=== PATIENT | female | born 1990 | race Caucasian/White ===

== ENCOUNTER 2016-08-16 00:14 | Emergency (ER) | payer OTHER ==
[2016-08-16 00:22] VITALS: BP 131/86
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
--- NOTE | 2016-08-16 07:47 | RAD ---
INDICATION: Head injury. COMPARISON: There are no prior studies available for comparison. TECHNIQUE: Contiguous axial sections of the brain were obtained from the skull base to the vertex without contrast. FINDINGS: The ventricles, cisterns and sulci are within normal limits. No significant focal abnormality or mass effect is seen. There is no evidence for hemorrhage. No significant focal osseous abnormality is seen. The visualized portion of the paranasal sinuses and mastoid air cells appear clear. IMPRESSION: NO EVIDENCE FOR ACUTE INTRACRANIAL ABNORMALITY.
== END 2016-08-16 02:24 | disposition home or self-care (01) ==
LOC: ED 00:14
DX: S09.90XA Unspecified injury of head, initial encounter (principal); V40.5XXA Car driver injured in collision with pedestrian or animal in traffic accident, initial encounter; Y92.9 Unspecified place or not applicable; F17.210 Nicotine dependence, cigarettes, uncomplicated
CPT/HCPCS: 70450; 99281

== ENCOUNTER 2016-09-09 13:56 | Emergency (ER) | payer BC ==
[2016-09-09] MEDS ORDERED: Ondansetron ODT TAB* 4 MG SL PRN (14:29)
[2016-09-09] MEDS ORDERED: Acetaminophen TAB* 325 MG PO ONE (14:30)
[2016-09-09 15:08] VITALS: BP 129/81
--- NOTE | 2016-09-09 17:55 | ED ---
Syncope/Near Syncope - HPI Summary HPI Summary: Patient is an otherwise healthy 25yo female who presents with near syncopal episode while having sex in the shower this morning. Partner states she felt warm and stated she was becoming light headed then slowly crouched down. He states she stared into space for a short period of time, then came to, laughing and wondering why she was on the floor. He states she lost consciousness for about 20 seconds. Denies previous episodes of this. Denies injuries, hitting head or confusion. Denies memory loss. Otherwise healthy and takes no medications. - History Of Current Complaint Chief Complaint: EDSyncope Time Seen by Provider: 09/09/16 14:20 Hx Obtained From: Patient, Family/Beam Press Operator Onset/Duration: Sudden Onset Timing: Intermittent Episode Lasting - 20 seconds Context: Witnessed Activity At Onset: Exertion Associated Head Trauma: No Aggravating Factor(s): Exertion Alleviating Factor(s): Spontaneous Resolution Associated Signs And Symptoms: Diaphoresis, Lightheadedness Frequency: Episodes x___ - 1, Episodes Lasting ____ (in Mins/Days/Weeks/Years) - 20 seconds - Risk Factors Cardiac Risk Factors: Negative Dysrhythmia Risk Factors: Negative Risk Factor(s): Negative - Allergies/Home Medications Allergies/Adverse Reactions: Allergies Allergy/AdvReac Type Severity Reaction Status Date / Time Bee Venom Allergy Hives Verified 09/09/16 14:49 Shrimp Flavor Allergy Hives Verified 09/09/16 14:49 BEES Allergy Severe Hives Uncoded 05/14/16 13:13 shrimp Allergy Hives Uncoded 05/14/16 13:13 PMH/Surg Hx/FS Hx/Imm Hx Previously Healthy: Yes Endocrine/Hematology History: Denies: Hx Diabetes, Hx Thyroid Disease Cardiovascular History: Denies: Hx Hypertension, Hx Peripheral Vascular Disease Respiratory History: Reports: Hx Sleep Apnea Denies: Hx Asthma, Hx Chronic Obstructive Pulmonary Disease (COPD) GI History: Denies: Hx Ulcer Musculoskeletal History: Denies: Hx Arthritis, Hx Osteoporosis Sensory History: Reports: Hx Contacts or Glasses Denies: Hx Cataracts, Hx Glaucoma Opthamlomology History: Reports: Hx Contacts or Glasses Denies: Hx Cataracts, Hx Glaucoma Neurological History: Reports: Hx Migraine Denies: Hx Headaches, Hx Seizures, Hx Transient Ischemic Attacks (TIA) Psychiatric History: Denies: Hx Anxiety, Hx Depression - Surgical History Surgery Procedure, Year, and Place: URETER SURGERY Infectious Disease History: No Infectious Disease History: Denies: Hx Clostridium Difficile, Hx Hepatitis, Hx Human Immunodeficiency Virus (HIV), Hx of Known/Suspected MRSA, Hx Shingles, Hx Tuberculosis, Hx Known/ Suspected VRE, Hx Known/Suspected VRSA, History Other Infectious Disease, Traveled Outside the [place] in Last 30 Days - Family History Known Family History: Positive: None, Cardiac Disease - Grandfather and both grandmothers, Hypertension, Diabetes - Social History Occupation: Employed Full-time Lives: With Family Alcohol Use: Occasionally Alcohol Amount: once a month Hx Substance Use: No Substance Use Type: Reports: None Hx Tobacco Use: Yes Smoking Status (MU): Light Every Day Tobacco Smoker Amount Used/How Often: 3 PER DAY Review of Systems Positive: Skin Diaphoresis Eyes: Negative Cardiovascular: Negative Respiratory: Negative Positive: no symptoms reported, see HPI Musculoskeletal: Negative Skin: Negative Neurological: Negative Psychological: Normal All Other Systems Reviewed And Are Negative: Yes Physical Exam Triage Information Reviewed: Yes Vital Signs On Initial Exam: Initial Vitals Temp Pulse Resp BP Pulse Ox 99.3 F 71 18 134/81 100 09/09/16 13:58 09/09/16 13:58 09/09/16 13:58 09/09/16 13:58 09/09/16 13:58 Vital Signs Reviewed: Yes Appearance: Positive: Well-Appearing, No Pain Distress, Well-Nourished Skin: Positive: Warm, Skin Color Reflects Adequate Perfusion Head/Face: Positive: Normal Head/Face Inspection Eyes: Positive: EOMI, SHI, Conjunctiva Clear Neck: Positive: Supple Respiratory/Lung Sounds: Positive: Clear to Auscultation, Breath Sounds Present Cardiovascular: Positive: Normal, RRR Musculoskeletal: Positive: Normal, Strength/ROM Intact Neurological: Positive: Normal, Sensory/Motor Intact, Alert, Oriented to Person Place, Time, Speech Normal Psychiatric: Positive: Normal AVPU Assessment: Alert Diagnostics - Vital Signs Vital Signs Temp Pulse Resp BP Pulse Ox 09/09/16 15:07 98.2 F 71 18 129/81 09/09/16 13:58 99.3 F 71 18 134/81 100 - Laboratory Lab Statement: Any lab studies that have been ordered have been reviewed, and results considered in the medical decision making process. Course/Dx Course Of Treatment: Patient feeling well on arrival. near syncopal episode in hot shower under exertion. educated patient on reactions with vasodilation while in the shower. No LOC, did not hit head. nauseous immediately after incident, but currently feeling well. will dc home with return precautions. - Diagnoses Differential Diagnosis/HQI/PQRI: Positive: Hypovolemia, Metabolic Reaction, Vasovagal Episode Provider Diagnoses: Vasovagal near-syncope Discharge - Discharge Plan Condition: Stable Disposition: HOME Patient Education Materials: Syncope (ED) Referrals: Renu Patel MD [Primary Care Provider] - Additional Instructions: Drink plenty of fluids today. If you feel you are not getting enough fluids, drink gatorade or tomato juice. Rest. Tylenol as needed for headache. A prescription was sent for zofran to your pharmacy. Use this medication only if you become nauseous.
== END 2016-09-09 15:07 | disposition home or self-care (01) ==
LOC: ED 13:56
DX: R55 Syncope and collapse (principal); F17.200 Nicotine dependence, unspecified, uncomplicated
CPT/HCPCS: 93005; 99282; A9270-GY

== ENCOUNTER 2017-06-12 08:33 | Emergency (ER) | payer BC ==
[2017-06-12 09:20] LABS: Hematocrit 40 % (35-47); Hemoglobin 13.8 g/dl (12.0-16.0); Mean Corpuscular HGB Conc 35 g/dl (31-36); Mean Corpuscular Hemoglobin 31 pg (27-31); Mean Corpuscular Volume 90 fL (80-97); Mean Platelet Volume 7 um3 (7.4-10.4); Red Blood Count 4.46 10^6/ul (4.0-5.4); Red Cell Distribution Width 12 % (10.5-15); White Blood Count 6.7 10^3/ul (3.5-10.8)
[2017-06-12] MEDS ORDERED: Acetaminophen TAB* 325 MG PO ONE (09:20)
[2017-06-12] MEDS ORDERED: Albuterol/Ipratropium NEB.SOL* Albuterol 2.5 MG/Ipratropium 0.5 MG 3 ML INH ONE (09:20)
[2017-06-12 09:32] LABS: ALT 10 U/L (7-52); AST 14 U/L (13-39); Albumin 4.6 g/dL (3.2-5.2); Alkaline Phosphatase 46 U/L (34-104); Anion Gap 9 mmol/L (2-11); BUN/Creatinine Ratio 16.9 (8-20); Blood Urea Nitrogen 13 mg/dL (6-24); C Reactive Protein < 1.00 mg/L (< 5.00); CO2 Carbon Dioxide 25 mmol/L (22-32); Calcium 9.6 mg/dL (8.6-10.3); Chloride 103 mmol/L (101-111); EGFR African American 114.8 (>60); EGFR Non-African American 89.3 (>60); Globulin 2.8 g/dL (2-4); Glucose 100 mg/dL (70-100); Potassium 4.4 mmol/L (3.5-5.0); Sodium 137 mmol/L (133-145); Total Protein 7.4 g/dL (6.4-8.9)
[2017-06-12 09:36] LABS: Troponin I 0.01 ng/mL (<0.04)
--- NOTE | 2017-06-12 09:39 | RAD ---
Indication: Shortness of breath. 2 views of the chest including dual energy PA views demonstrate no mediastinal shift. Heart is of normal size and configuration. Lung del ri[place] are clear. IMPRESSION: NO ACTIVE CARDIOPULMONARY DISEASE IS NOTED.
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
[2017-06-12 10:27] LABS: Urine Bacteria Absent (Absent); Urine Bilirubin Negative (Negative); Urine Glucose Negative (Negative); Urine Nitrite Positive (Negative)
[2017-06-12 10:53] LABS: Benzodiazepine Urine Screen None Detected (None Detect)
[2017-06-12] MEDS ORDERED: Iohexol 350* (CONTRAST) 500 ML MDV IV ONE ×2 (11:18→12:38)
--- NOTE | 2017-06-12 12:02 | RAD ---
HISTORY: Neck pain, headache, left arm tingling COMPARISONS: None relevant TECHNIQUE: Multiple contiguous axial CT scans were obtained of the head before and after and of the neck After the administration of nonionic intravenous contrast timed to the systemic arterial phase of contrast enhancement. Coronal and sagittal multiplanar reformations are submitted for review. Multiple 3-D maximum intensity projection reconstructions are also submitted for review. FINDINGS: CTA NECK: AORTIC ARCH: There is ectasia of ascending thoracic aorta, measuring up to 3.6 cm transversely. This is incompletely evaluated on the current examination RIGHT VERTEBRAL ARTERY: The right vertebral artery is patent along its course, without stenosis. LEFT VERTEBRAL ARTERY: The left vertebral artery is patent along its course, without stenosis. DOMINANCE: The vertebral arteries are codominant. RIGHT COMMON CAROTID ARTERY: The right common carotid artery is patent. The right carotid bifurcation occurs at C4-C5 RIGHT INTERNAL CAROTID ARTERY: There is no right internal carotid artery stenosis by NASCET criteria. There is no intimal flap to suggest dissection. RIGHT EXTERNAL CAROTID ARTERY: The right external carotid artery is unremarkable. LEFT COMMON CAROTID ARTERY: The left common carotid artery is patent. The left carotid bifurcation occurs at C4-C5 LEFT INTERNAL CAROTID ARTERY: There is no left internal carotid artery stenosis by NASCET criteria. There is no intimal flap to suggest dissection. LEFT EXTERNAL CAROTID ARTERY: The left external carotid artery is unremarkable. VENOUS CIRCULATION: The venous system is unremarkable. SALIVARY GLANDS: The parotid glands, submandibular glands, sublingual glands are normal. NASAL CAVITY/NASOPHARYNX: The nasal cavity and nasopharynx are normal. ORAL CAVITY/OROPHARYNX: The oral cavity is obscured by streak artifact from dental amalgam. The visualized oral cavity and oropharynx are unremarkable. LARYNGEAL APPARATUS/HYPOPHARYNX: The laryngeal apparatus and hypopharynx are normal. UPPER AIRWAY/UPPER ESOPHAGUS: The visualized upper airway and esophagus are normal. LUNG APICES: The lung apices are clear. THYROID GLAND: The thyroid is heterogeneous with several small nodules measuring up to 0.5 cm. LYMPH NODES: There is no lymphadenopathy by size criteria. BONES AND SOFT TISSUES: No bone or soft tissue abnormalities are noted. CTA HEAD: INTRACRANIAL CIRCULATION: There is no aneurysm, vascular malformation, occlusion, or stenosis of the visualized intracranial circulation. The anterior communicating artery complex is clear. Bilateral posterior communicating arteries are identified. VENOUS CIRCULATION: The venous system is unremarkable. PERFUSION: There is no obvious parenchymal perfusion deficit. HEMORRHAGE/INFARCT: There is no hemorrhage or acute infarct. MASSES/SHIFT: There is no mass or shift. EXTRA-AXIAL SPACES: There are no extra-axial fluid collections. SULCI AND VENTRICLES: The sulci and ventricles are normal in size and position for the patient's stated age. CEREBRUM: There are no focal parenchymal abnormalities. BRAINSTEM: There are no focal parenchymal abnormalities. CEREBELLUM: There are no focal parenchymal abnormalities. PARANASAL SINUSES: The paranasal sinuses are clear. ORBITS: The orbits are unremarkable. BONES AND SOFT TISSUE: There is straightening of the cervical lordosis. OTHER: There is no abnormal enhancement. IMPRESSION: 1. ECTASIA OF THE ASCENDING THORACIC AORTA, INCOMPLETELY EVALUATED ON THE CURRENT EXAMINATION. 2. INTERNAL CAROTID ARTERY STENOSIS BY NASCET CRITERIA. NO INTIMAL FLAP TO SUGGEST DISSECTION. 3. NO ANEURYSM, VASCULAR MALFORMATION, OCCLUSION, OR STENOSIS OF THE VISUALIZED INTRACRANIAL CIRCULATION.. 4. HETEROGENEOUS THYROID WITH SEVERAL SMALL NODULES. RECOMMEND CORRELATION WITH DEDICATED IMAGING OF THE THYROID IN THE NONACUTE SETTING CPT II Codes: 3100F
[2017-06-12 12:50] LABS: TSH (Thyroid Stimulating Horm) 1.36 mcIU/mL (0.34-5.60)
--- NOTE | 2017-06-12 13:19 | RAD ---
INDICATION: Chest pain. Evaluate for vascular disease. COMPARISON: Chest x-ray same date; CTA of the head and neck from same date TECHNIQUE: Axial source images were obtained from the thoracic inlet to the symphysis pubis following administration of intravenous contrast only and utilizing CT angiographic technique 100 mL of Omnipaque 350 was utilized. Coronal and sagittal reconstructed images were acquired. CHEST FINDINGS: Neck/thyroid: The visualized neck to include the thyroid appear normal. Chest wall: There are no acute abnormalities of the bony thorax or chest wall. There is no supraclavicular, infraclavicular, or axillary lymphadenopathy. Lungs : There are no pulmonary parenchymal masses or infiltrates. The pulmonary interstitium appears normal. There are no endobronchial lesions. Cardiomediastinal structures: The heart is normal in size. There is no pericardial effusion. There is no evidence of aortic aneurysm or dissection. There is ectasia of the sg ascending thoracic aorta and aortic root with maximum transverse dimension of 3.7 cm. The pulmonary vessels appear normal. There is no mediastinal or hilar adenopathy. The esophagus appears normal. Pleura : There are no pleural-based masses or effusions. ABDOMINAL/PELVIC FINDINGS: Liver: The liver is normal in size. There are no masses. There is no ductal dilatation. Gallbladder: There are no calcified gallstones. There is no evidence of wall thickening or pericholecystic fluid. Spleen: The spleen is normal in size. Normal appearance on early arterial phase enhancement. Pancreas: There is no evidence of pancreatic mass or ductal dilatation. Adrenal glands: There is no evidence of adrenal mass. Kidneys: The kidneys are normal in size and position. There are prompt nephrograms and there is prompt excretion bilaterally. There are no renal parenchymal masses. There is no evidence of nephrolithiasis. Adenopathy: There is no evidence of adenopathy by size criteria. Fluid collections: There are no free or localized fluid collections. Vessels: The aorta is normal in caliber. There is no evidence of aneurysm or dissection. 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 The SMA and ISAURA arise satisfactorily. There are single renal arteries bilaterally which are widely patent. The iliac vessels are normal in caliber. The IVC is unremarkable GI tract: Limited evaluation as no oral contrast was administered. No specific CT abnormalities. Pelvic organs: The uterus and adnexa appear normal. Still note is made of an IUD Bladder: There are no bladder masses. Abdominal and pelvic soft tissues: The extraperitoneal abdominal and pelvic soft tissues appear normal.. Osseous structures: There are no acute osseous findings. IMPRESSION: 1. 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 There is no focal aneurysm. 2. 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 The remaining visceral branches appear normal. 3. No CT evidence of acute pulmonary embolic disease. 4. Lungs clear. 5. No acute CT abnormalities of the abdomen or pelvis.
[2017-06-12] MEDS ORDERED: Ketorolac INJ* 30 MG/ML 1 ML VIAL IV PUSH ONE (13:37)
[2017-06-12 14:04] VITALS: BP 126/72
--- NOTE | 2017-06-14 12:35 | PN ---
Progress Note - Progress Note Date of Service: 06/14/17 Note: Patient urine culture grew E coli>100,000. will place on keflex 500mg [id number]. left vm with patient about addition of medication.
== END 2017-06-12 14:03 | disposition home or self-care (01) ==
LOC: ED 08:33
DX: R06.02 Shortness of breath (principal); R07.89 Other chest pain; F17.210 Nicotine dependence, cigarettes, uncomplicated
CPT/HCPCS: 36415; 70496; 70498; 71020; 71275; 74174; 80053; 80307; 81003; 81015; 82553; 83605; 84443; 84484; 84702; 85025; 85379; 86140; 87077; 87086; 87186; 93005; 94640; 96374; 96375; 96376; 99283; A9270-GY; J1885; Q9967